=== PATIENT | female | born 1975 | race African-American/Black ===

== ENCOUNTER 2021-03-28 08:01 | Outpatient (CLI) | payer BC | END 2021-03-28 08:02 | disposition home or self-care (01) | LOC: CSHMAMMO 08:01 | PROVIDERS: ATTEND Internal Medicine | DX: Z12.31 Encounter for screening mammogram for malignant neoplasm of breast (principal); N63.14 Unspecified lump in the right breast, lower inner quadrant | CPT/HCPCS: 77063; 77067 ==

== ENCOUNTER 2021-04-04 12:46 | Outpatient (CLI) | payer BC | END 2021-04-04 12:47 | disposition home or self-care (01) | LOC: CSHULT 12:46 | PROVIDERS: ATTEND Internal Medicine | DX: R92.8 Other abnormal and inconclusive findings on diagnostic imaging of breast (principal) ==